=== PATIENT | female | born 1980 | race Caucasian/White ===

== ENCOUNTER 2023-06-07 16:36 | Outpatient (CLI) | payer BC, SELFPAY | END 2023-06-07 16:37 | disposition home or self-care (01) | PROVIDERS: Visit Provider Registered Nurse | DX: Z01.419 Encounter for gynecological examination (general) (routine) without abnormal findings (principal); N92.0 Excessive and frequent menstruation with regular cycle; Z13.6 Encounter for screening for cardiovascular disorders; Z13.1 Encounter for screening for diabetes mellitus | CPT/HCPCS: 80061; 82947; 84443 ==

== ENCOUNTER 2023-06-20 12:52 | Outpatient (CLI) | payer BC, SELFPAY ==
--- NOTE | 2023-06-20 13:00 | CRLHL7_ITS ---
For Patients: As a result of the Century Cures Act, medical imaging exams and procedure reports are released immediately into your electronic medical record. You may view this report before your referring provider. If you have questions, please contact your health care provider. INDICATION: Menorrhagia COMPARISON: none TECHNIQUE: 2D looney scale and color Doppler images were acquired of the pelvis using a transabdominal and transvaginal approach. FINDINGS: Sonographic images demonstrate a normal size and smooth outer contour of the uterus. Uterus measures 8.0 cm in length by 4.0 cm in AP diameter by 5.2 cm in transverse dimension. The myometrium has a normal uniform echotexture. The endometrial lining appears normal and measures 8 mm in composite thickness. The right ovary measures 4.3 x 1.5 x 1.6 cm in size and the left ovary measures 2.5 x 1.4 x 1.8 cm. The ovaries demonstrate normal arterial and venous blood flow on color Doppler analysis. There are no suspicious fluid collections within the cul-de-sac. Trace physiologic free fluid is present. IMPRESSION: Normal pelvic ultrasound. Dictated by Escobar Benoit MD @ 06/20/2023 3:11:41 PM (Electronically Signed)
== END 2023-06-20 12:53 | disposition home or self-care (01) ==
LOC: US 12:53
PROVIDERS: Visit Provider Registered Nurse
DX: N92.0 Excessive and frequent menstruation with regular cycle (principal)
CPT/HCPCS: 76830; 76856

== ENCOUNTER 2023-09-05 14:51 | Outpatient (CLI) | payer BC, SELFPAY ==
--- OUTSIDE RECORDS SUMMARY | 2023-09-05 14:54 | XMS_ITS | Encounter Summary ---
Author Name Unknown Organization [facility] Address [address] [place] [address] Care Team Providers Care Cook Ship Name Role Phone Jeannette Rice MD Primary Care Provider + Jeannette Rice MD Unavailable + Jaylen Gee PA-C Unavailable + Jeannette Rice MD Unavailable + Jeannette Rice MD Unavailable + Encounter Details Date Type Department Care Team (Late st Contact Info) Description 09/11/2019 MyC Medical Advice [address], [address] [place] [address] Fide Lamb Social History Tobacco Use Types Packs/Day Years Used Date Smoking Tobacco: Former Cigarettes 1 10 Q uit: 10/31/2010 Smokeless Tobacco: Never Quit: 10/13/2010 Alcohol Use Standard Drinks/Week Comments Yes 2.5 (1 standard drink = 0.6 oz p ure alcohol) ONCE IN AWHILE. PHQ-2 Answer Date Recorded PHQ-2 Score 0 08/22/2018 Sex and Gender Information Value Date Recorded Sex Assigned at Female 12/24/2020 10:33 AM CDT Gender Identity Female 12/24/2020 10:33 AM CDT Sexual Orientation Straight 12/24/2020 10 :33 AM CDT documented as of this encounter Plan of Treatment Not on file documented as of this encounter Visit Diagnoses Not on filedocumented in this encounter Additional Health Concerns Assessment Noted Time PHQ-9 Depression Total Score: 2 12/08/19 17 7:07 AM CDT documented as of this encounter Care Teams Cook Ship Relationship Specialty Start Date End Date Jeannette Rice MD PCP - General Family Practice 12/06/16 [place] [address] [address]O 385[address] Assigned PCP 12/12/16 09/13/20 Jaylen Gee PA-C [address]5869 [address] [address] Assigned PCP 09/14/20 10/11/20 [place] [address] [address]O 18[address] Assigned PCP 10/12/20 01/17/21 [place] [address] [address] [address] Assigned PCP 01/18/21 documented as of this encounter
--- OUTSIDE RECORDS SUMMARY | 2023-09-05 14:54 | XMS_ITS | Referral Summary ---
Author Name Unknown Organization [place] [facility] Address [address] [place] [address] Care Team Providers Care It Program Engagement Director Name Role Phone Jeannette Rice MD Primary Care Provider Jeannette Rice MD Unavailable [phone] Allergies No known active allergies Medications Medication Sig Dispensed Refills Start Date End Date Status traZODone (DESYREL) 50 MG tabletIndications:Ins omnia, unspecified type Take 1 tablet (50 mg) by mouth At Bedtime 90 tablet 3 12/31/2020 Active Active Problems Problem Noted Date Diagnosed Date Cervical polyp 04/03/2013 CKD (chronic kidney disease) stage 2, GFR 60-89 ml/min 10/10/2012 Right foot pain 04/07/2012 Overview: Stress fx after summer TWYLA I (cervical intraepithelial neoplasia I) Overview: 07/14/10 ASCUS, +high risk HPV 08/04/10 [place], TWYLA 1: repeat in 4 months 12/31/10 Dx pap=neg: Repeat in 6 months 08/27/11 Pap=neg: annual paps per Dr. Rice 10/10/12 Pap= Neg. 1 year screening. 12/06/16 Pap= Normal, +HR HPV, not 16/18. 1 yr co-test 03/13/18 NIL, +HR HPV, not 16/18. Plan colp 04/11/18 [place]- Negative. Plan repeat pap 6 months 01/09/19 NIL, Neg HPV. Plan 3 yr co-test ASCUS on Pap smear 07/14/2010 HPV (human papillomavirus) 07/14/2010 CARDIOVASCULAR SCREENING; LDL GOAL LESS THAN 160 06/14/2010 Genital herpes 04/30/2008 Overview: 2008, one outbreak Anxiety Insomnia Resolved Problems Problem Noted Date Diagnosed Date Resolved Date Lumbar disc herniation with radiculopathy 06/16/2017 12/31/2020 Lumbar radicular pain 05/18/20172016 BMI 26.0-26.9,adult 05/23/2014 02/25/20 15 Indication for care in labor or delivery 12/16/2013 09/11/2019 Post-operative state 12/16/2013 015 Positive test 04/03/201302/12 Genital warts 10/10/2012 Immunizations Name Administration Dates Next Due DT (PEDS <7y) 12/17/1994 DTaP, Unspecified 11/06/2013,05/08/2008 HPV Quadrivalent 06/13/2008,05/08/2008 Historical DTP/aP 11/14/1987, 4,1982,1982,1982 Influenza (IIV3) PF 06/15/2019,06/16/2017,2012 Influenza Vaccine 18-64 (Flublok) 05/08/2015 Influenza Vaccine >6 months,quad, PF 05/13/2018, 05/30/2014 Influenza, seasonal, injectable, PF 05/08/2015 MMR 12/17/1994,10/26/1983 Polio, Unspecified 11/14/1987, 4,1982,1982 TD,PF 7+ (Tenivac) 05/08/2008 Social History Tobacco Use Types Packs/Day Years Used Date Smoking Tobacco: Former Cigarettes 1 10 Q uit: 10/31/2010 Smokeless Tobacco: Never Quit: 10/13/2010 Tobacco Cessation:Counseling Given: Yes Alcohol Use Standard Drinks/Week Comments Yes 2.5 (1 standard drink = 0.6 oz p ure alcohol) ONCE IN AWHILE. PHQ-2 Answer Date Recorded PHQ-2 Score 0 12/31/2020 Adolescent Education Answer Date Record ed Getting School Help Needed Not on file 05/15 Sex and Gender Information Value Date Recorded Sex Assigned at Female 12/24/2020 10:33 AM CDT Gender Identity Female 12/24/2020 10:33 AM CDT Sexual Orientation Straight 12/24/2020 10 :33 AM CDT Last Filed Vital Signs Vital Sign Reading Time Taken Comments Blood Pressure 102/60 12/31/2020 7:15 AM CDT Pulse 60 12/31/2020 7:15 AM CDT Temperature 36.6 ??C (97.8 ??F) 12/31/2020 7:15 AM CD T Respiratory Rate 16 12/31/2020 7:15 AM CDT Oxygen Saturation 100% 09/11/2019 8:43 AM PAINT PREP TECHNICIAN Inhaled Oxygen Concentration - - Weight 66.7 kg (147 lb) 12/31/2020 7:15 AM CDT Height 168.9 cm (5' 6.5) 12/31/2020 7:15 AM CDT Body Mass Index 23.37 12/31/2020 7:15 AM CDT Plan of Treatment Not on file Care Teams It Program Engagement Director Relationship Specialty Start Date End Date Jeannette Rice MD PCP - General Family Practice 12/06/16 [place] [address] [address] [address] Assigned PCP 01/18/21
--- OUTSIDE RECORDS SUMMARY | 2023-09-05 14:54 | XMS_ITS | Encounter Summary ---
Author Name Unknown Organization [facility] Address [address] [place] [address]. [place] [address] Care Team Providers Care Body And Fender Mechanic Apprentice Name Role Phone Jeannette Rice MD Primary Care Provider Jeannette Rice MD Unavailable [phone] Jaylen Gee PA-C Unavailable + [phone] Jeannette Rice MD Unavailable [phone] Jeannette Rice MD Unavailable [phone] Reason for Visit * Reason Onset Date Comments Medication Refill 12/20/2018 traZODone (JONATHAN YREL) 50 MG tablet Encounter Details Date Type Department Care Team (Late st Contact Info) Description 12/20/[address], [address] [place] [address] [place] [address] [place] [address] Medication Refill (traZODone (DESYREL) 50 MG tablet) Social History Tobacco Use Types Packs/Day Years [...] AM CDT documented as of this encounter Miscellaneous Notes * Telephone Encounter - Stella Salgado RN - 12/21/2018 11:23 AM CDT Will give refill as patient has an upcoming appointment. Stella Salgado RN * Telephone Encounter - Carla Samayoa - 12/20/2018 8:26 AM CDT Images from the original note were not included. Requested Prescriptions Pending Prescriptions Disp Refills ??? traZODone (DESYREL) 50 MG tablet [Pharmacy Med Name: TRAZODONE 50 MG TABLET] 90 tablet 1 Sig: TAKE 1 TABLET (50 MG) BY MOUTH NIGHTLY NEEDED FOR SLEEP Last Written Prescription Date: 06/08/18 Last Fill Quantity: 90, # refills: 1 Last Office Visit: 04/11/18 Krystal Return in about 6 months (around 10/12/2018) for repeat pap. Future Office Visit: Next 5 appointments (look out 90 days) January 09, 2019 3:40 PM CDT Office Visit with Jeannette [facility] [address] [place] [address], [address] [address] Serotonin Modulators Passed - 12/20/2018 1:26 AM Passed - Recent (12 mo) or future (30 days) visit within the authorizing provider's specialty Patient had office visit in the last 12 months or has a visit in the next 30 days with authorizing provider or within the authorizing provider's specialty. See Patient Info tab in inbasket, or Choose Columns in Meds & Orders section of the refill encounter. Passed - Medication is active on med list Passed - Patient is age 18 or older Passed - No active on record Passed - No positive test in past 12 months documented in this encounter Plan of Treatment Not on file documented as of this encounter Visit Diagnoses Diagnosis Insomnia, unspecified type documented in this encounter Additional Health Concerns Assessment Noted Time PHQ-9 Depression Total Score: 2 12/08/19 17 7:07 AM CDT documented as of this encounter Care Teams Body And Fender Mechanic Apprentice Relationship Specialty Start Date End Date Jeannette Rcie MD PCP - General Family Practice 12/06/16 [place] [address] [address] [address] Assigned PCP 12/12/16 09/13/20 Jaylen Gee PA-C [address]22 [address] [address] Assigned PCP 09/14/20 10/11/20 [place] [address] [address] [address] Assigned PCP 10/12/20 01/17/21 [place] [address] [place] [address] Assigned PCP 01/18/21 documented as of this encounter
--- OUTSIDE RECORDS SUMMARY | 2023-09-05 14:54 | XMS_ITS | Continuity of Care Document ---
Author Name Unknown Organization [facility] Address [address] [place] [address] [place] [address] Insurance Providers Payer Plan Claims Address Claims Phone Policy Number Group Number Relation Employer Guarantor Name Guarantor Guarantor Address Guarantor Phone BCBS BCBS [address] [address], [place] [address] tel:[phone] [id number] Self Deidra Roberts 1980 [facility] [place] [address] Blue Cross [id number] Blue Cross [id number] Self Deidra Roberts 1980 [facility] [address] [place], [place] [address] Problems Condition ICD9 code ICD10 code SNOMED code Start Date End Date S tatus Encounter for immunization Z23 Final Excessive and frequent menstruation with regular cycle N92.0 Final Encounter for other screening for malignant neoplasm of breast Z12.39 Final Excessive and frequent menstruation with regular cycle N92.0 Admitting Excessive and frequent menstruation with regular cycle N92.0 Final Encounter for other screening for malignant neoplasm of breast Z12.39 Admitting Results No Results Allergies, adverse reactions, alerts No known allergies and adverse reactions Medications No administered medications reported Vital Signs No vital signs reported Social History No smoking Hx information available
--- OUTSIDE RECORDS SUMMARY | 2023-09-05 14:54 | XMS_ITS | Encounter Summary ---
Author Name Unknown Organization [facility] Address [address] [place] [address] Care Team Providers Care Incubator Machine Operator Name Role Phone Jeannette Rice MD Primary Care Provider + Jeannette Rice MD Unavailable + Jeannette Rice MD Unavailable + Jaylen Gee PA-C Unavailable + Jeannette Rice MD Unavailable + Jeannette Rice MD Unavailable + Encounter Details Date Type Department Care Team (Late st Contact Info) Description 09/29/2018 MyC Medical Advice [address] [address] Lourdes Goode Social History Tobacco Use Types Packs/Day Years [...] documented as of this encounter Care Teams Incubator Machine Operator Relationship Specialty Start Date End Date Jeannette Rice MD PCP - General Family Practice 12/06/16 [place] [address] [place] [address] PCP - Assigned PCP 12/12/16 10/17/18 [place] [address] [place] [address] Assigned PCP 12/12/16 09/13/20 Jaylen Gee PA-C [address] [place] [address] Assigned PCP 09/14/20 10/11/20 [place] [address] [place] [address] Assigned PCP 10/12/20 01/17/21 [place] [address] [place] [address] Assigned PCP 01/18/21 documented as of this encounter
--- OUTSIDE RECORDS SUMMARY | 2023-09-05 14:54 | XMS_ITS | Clinical Summary ---
Author Name Unknown Organization [facility] Address [address] [place] [address] Care Team Providers Care Press Set Up Name Role Phone Jeannette Rice MD Primary Care Provider Jeannette Rice MD Unavailable [phone] Allergies No known active allergies Medications Medication [...] Overview: 07/14/10 ASCUS, +high risk HPV 08/04/10 [place], TWYLA 1: repeat in 4 months 12/31/10 Dx pap=neg: Repeat in 6 months 08/27/11 Pap=neg: annual paps per Dr. Rice 10/10/12 Pap= Neg. 1 year screening. 12/06/16 Pap= Normal, +HR HPV, not 16/18. 1 yr co-test 03/13/18 NIL, +HR HPV, not 16/18. Plan colp 04/11/18 [place]- Negative. Plan repeat pap 6 months 01/09/19 [...] Unspecified 11/14/1987, 4,1982,1982 TD,PF 7+ (Tenivac) 05/08/2008 Family History Medical History Relation Comments Family History Negative Brother Family History Negative Father Cancer Maternal Grandfather skin CA Diabetes Maternal Grandmother DM2 Family History Negative Mother other th an osteopenia Cancer Paternal Grandfather Lung CA Family History Negative Sister Relation Status Comments Brother Alive Father Alive Maternal Grandfather Maternal Grandmother Alive Mother Alive Paternal Grandfather Paternal Grandmother Sister Alive Son Alive Social History Tobacco Use Types Packs/Day Years [...] CDT Oxygen Saturation 100% 09/11/2019 8:43 AM BEAMSTER Inhaled Oxygen Concentration - - Weight 66.7 kg (147 lb) 12/31/2020 7:15 AM CDT Height 168.9 cm (5' 6.5) 12/31/2020 7:15 AM CDT Body Mass Index 23.37 12/31/2020 7:15 AM CDT Plan of Treatment Health Maintenance Due Date Last Done Comments HEPATITIS B IMMUNIZATION (1 of 3 - 3-dose series) 1982 COVID-19 Vaccine (#1) 01/19/1983 HPV IMMUNIZATION (3 - 3-dose series) 11/05/2008 06/13/2008, 05/08/2008 ANNUAL REVIEW OF HM ORDERS 12/31/2021 12/31/2020 BMP 12/31/2021 12/31/2020, 08/16, 03/13/2018, Additional history exists LIPID 12/31/2021 12/31/2020, 08/16, 03/13/2018, Additional history exists MICROALBUMIN 12/31/2021 12/31/2020, 08/16, 10/10/2012 YEARLY PREVENTIVE VISIT 12/31/2021 01/01/20 21, 03/13/2018, 10/10/2012, Additional history exists HPV TEST 01/09/2022 01/09/2019, 12/14, 03/13/2018, Additional history exists PAP 01/09/2022 01/09/2019, 02/14, 12/06/2016, Additional history exists INFLUENZA VACCINE (#1) 2023 9, 05/13/2018, 06/16/2017, Additional history exists PHQ-2 (once per calendar year) 2023 12/31/2020, 10/09/2019, 01/09/2019, Additional history exists DTAP/TDAP/TD IMMUNIZATION (9 - Tdap) 11/07/2023 11/06/2013, 05/08/2008, 05/08/2008, Additional history exists ADVANCE CARE PLANNING 01/14/2026 01/14/2021 IPV IMMUNIZATION Completed 11/14/1987, 08/1983, 1982, Additional history exists HIV SCREENING Completed 05/25/2013 URINALYSIS Completed 12/17/2015, 03/16, 03/06/2013, Additional history exists HEPATITIS C SCREENING Completed 12/31/2020 MENINGITIS IMMUNIZATION Aged Out No l onger eligible based on patient's age to complete this topic Pneumococcal Vaccine: Pediatrics (0 to 5 Years) and At-Risk Patients (6 to 64 Years) Aged Out No longer eligible based on patient's age to complete this topic RSV MONOCLONAL ANTIBODY Aged Out No l onger eligible based on patient's age to complete this topic Care Teams Press Set Up Relationship Specialty Start Date End Date Jeannette Rice MD PCP - General Family Practice 12/06/16 [place] [address] [address] [address] Assigned PCP 01/18/21
--- OUTSIDE RECORDS SUMMARY | 2023-09-05 14:55 | XMS_ITS | Encounter Summary ---
Author Name Unknown Organization [facility] Address [address] [place] [address] Care Team Providers Care Administrative Clerk Name Role Phone Jeannette Rice MD Primary Care Provider + Jeannette Rice MD Unavailable + Jeannette Rice MD Unavailable + Jaylen Gee PA-C Unavailable + Jeannette iRce MD Unavailable + Jeannette Rice MD Unavailable + Encounter Details Date Type Department Care Team (Late st Contact Info) Description 10/09/2012 [facility] [address], [facility] [address] [place] [phone] [facility] Social History Tobacco Use Types Packs/Day Years Used Date Smoking Tobacco: Former Cigarettes Q uit: 10/31/2010 Smokeless Tobacco: Never Quit: 10/13/2010 Alcohol Use Standard Drinks/Week Comments Yes 0 (1 standard drink = 0.6 oz pur e alcohol) Sex and Gender Information Value Date Recorded Sex Assigned at Female 12/24/2020 10:33 AM CDT Gender Identity Female 12/24/2020 10:33 AM CDT Sexual Orientation Straight 12/24/2020 10 :33 AM CDT documented as of this encounter Plan of Treatment Not on file documented as of this encounter Visit Diagnoses Not on filedocumented in this encounter Care Teams Administrative Clerk Relationship Specialty Start Date End Date Jeannette Rice MD PCP - General Family Practice 12/06/16 [place] [address] [place] [address] PCP - Assigned PCP 12/12/16 10/17/18 [place] [address] [place] [address] Assigned PCP 12/12/16 09/13/20 Jaylen Gee PA-C [address] [place] [address] Assigned PCP 09/14/20 10/11/20 [place] [address] [place] [address] Assigned PCP 10/12/20 01/17/21 [place] [address] [place] [address] Assigned PCP 01/18/21 documented as of this encounter
--- OUTSIDE RECORDS SUMMARY | 2023-09-05 14:55 | XMS_ITS | Encounter Summary ---
Author Name Unknown Organization [facility] Address [address] [place] [address] Care Team Providers Care Mobile Electronics Installer Name Role Phone Jeannette Rice MD Primary Care Provider + Jeannette Rice MD Unavailable + Jeannette Rice MD Unavailable + Jaylen Gee PA-C Unavailable + Jeannette Rice MD Unavailable + Jeannette Rice MD Unavailable + Encounter Details Date Type Department Care Team (Late st Contact Info) Description 06/24/2017 MyC Medical Advice [facility] [address] [address] Charley Marie, RN Social History Tobacco Use Types Packs/Day Years Used Date Smoking Tobacco: Former Cigarettes 1 10 Q uit: 10/31/2010 Smokeless Tobacco: Never Quit: 10/13/2010 Alcohol Use Standard Drinks/Week Comments Yes 2.5 (1 standard drink = 0.6 oz p ure alcohol) ONCE IN AWHILE. Sex and Gender Information Value Date Recorded [...] documented as of this encounter Care Teams Mobile Electronics Installer Relationship Specialty Start Date End Date Jeannette Rice MD PCP - General Family Practice 12/06/16 [place] [address] [address]O [address] PCP - Assigned PCP 12/12/16 10/17/18 [place] [address] [address] [address] Assigned PCP 12/12/16 09/13/20 Jaylen Gee PA-C [address] [address] [address] Assigned PCP 09/14/20 10/11/20 [place] [address] [address] [address] Assigned PCP 10/12/20 01/17/21 [place] [address] [address] [address] Assigned PCP 01/18/21 documented as of this encounter
--- OUTSIDE RECORDS SUMMARY | 2023-09-05 14:55 | XMS_ITS | Encounter Summary ---
Author Name Unknown Organization [facility] Address [address] [place] [address] Care Team Providers Care Management And Budget Analyst Name Role Phone Jeannette Rice MD Primary Care Provider + Jeannette Rice MD Unavailable + Jeannette Rice MD Unavailable + Jaylen Gee PA-C Unavailable + Jeannette Rice MD Unavailable + Jeannette Rice MD Unavailable + Encounter Details Date Type Department Care Team (Late st Contact Info) Description 03/30/[address] [phone] Tarsha [place] [address] ER ENC REPT (Primary Dx) Social History Tobacco Use Types Packs/Day Years [...] AM CDT documented as of this encounter Progress Notes * 03/30/2003 11:59 PM [id number] 00:00 Emergency Department Encounter-LUIS CRAWFORD) [Entered: 00:00 Non Destructive Evaluation Technician ([facility])] CHIEF COMPLAINT: Abdominal pain. HISTORY OF PRESENT ILLNESS: Deidra Roberts is a 22-year- old female, 0, para 0, LMP 03/07/03, presents to the Emerge ncy Department complaining of sudden onset of left flank pain at 14:00. The patient states that the pain was of a restless quality but was not associated with any urinary symptoms. The patient denie s any fever or chills, history of kidney stones. The patient states that she has had periodic back left flank pain for months to years. She was seen initially at [facility] at [facility] and wa s sent to the Emergency Department for further evaluation. There has been no nausea or vomiting. PAST MEDICAL HISTORY: Bladder surgery 18 years ago. 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 MEDICATIONS: None. ALLERGIES: None. SOCIAL HISTORY: Student at [employer]. Keysha ing in [place]. REVIEW OF SYSTEMS: MANAGER PAID: Negative. : Negative. GI: The patient denies any vom iting or diarrhea, history of irritable bowel. PHYSICAL EXAMINATION: VITAL SIGNS: Temperature 98.1 , pulse of 73, respiratory rate 16, blood pressure 133/85. GENERAL: Well-developed, well-nourished f emale, awake, alert. SKIN: Warm and dry. HEAD: Normocephalic and atraumatic. EYES: Pupils are eq ual, round, reactive to light. Extraocular motions are intact. EAR: TM's clear. NOSE and THROAT: Clear. NECK: Supple. CHEST: Clear to auscultation, without CVA tenderness. CV: S1, S2, no S3, S4. ABDOMEN: Tender to palpation in left lower quadrant. There are no masses. There is no rebound. There is no involuntary guarding. PELVIC: Refused. EXTREMITIES: Without cyanosis, clubbing or edema. NEURO: Moves all extremities well. DTR's +2. EMERGENCY DEPARTMENT COURSE: WBC 8.5, he moglobin 13.5, hematocrit 40. Urinalysis positive for protein, otherwise negative for WBC, negative for RBC. Serum HCG negative. CT of the abdomen and pelvis kidney stone protocol demonstrated no e vidence of hydronephrosis, renal calculus. Pelvic ultrasound was obtained and was negative. The patient received Toradol 30 mg IV push. I surmised her abdominal pain was either secondary to mitt elschmerz, ruptured ovarian cyst, or passed kidney stone, or kidney stone too small to detect. IMPRE SSION: Abdominal pain, etiology unknown. PLAN: 1. Vicodin dispense 12. 2. Strain all urine, save all stones. 3. Push fluids. 4. [facility] [place] MD [place]: [facility] Document: [id number] [place], [place] Name: BEENA DEIDRA Rueda EMERGENCY ROOM ENCOUNTER Page 2 of 2 LCN: ER DSC: 03/30 [place], [place] Name: BEENADEIDRA Mohit MR#: : Admit Date: 09-27-29-57 1980 03/30/2003 Doctor: LUIS VALVERDE MD EMERGENCY ROOM ENCOUNTER Page 1 of 2 Electronically filed by Andreas Iglesias 04/03/2003 5:05 PM documented in this encounter Plan of Treatment Not on file documented as of this encounter Visit Diagnoses Diagnosis ER ENC REPT- Primary documented in this encounter Care Teams Management And Budget Analyst Relationship Specialty Start Date End Date Jeannette Rice MD PCP - General Family Practice 12/06/16 [place] [address] [address] [address] PCP - Assigned PCP 12/12/16 10/17/18 [place] [address] [address] [address] Assigned PCP 12/12/16 09/13/20 Jaylen Gee PA-C [address] [place], [place] [address] Assigned PCP 09/14/20 10/11/20 [place] [address] [address] [address] Assigned PCP 10/12/20 01/17/21 [place] [address] [address] [address] Assigned PCP 01/18/21 documented as of this encounter
--- OUTSIDE RECORDS SUMMARY | 2023-09-05 14:55 | XMS_ITS | Encounter Summary ---
Author Name Unknown Organization [facility] Address [address] [place] [address] Care Team Providers Care Coconut Boiler Name Role Phone Jeannette Rice MD Primary Care Provider + Jeannette Rice MD Unavailable + Jeannette Rice MD Unavailable + Jaylen Gee PA-C Unavailable + Jeannette Rice MD Unavailable + Jeannette Rice MD Unavailable + Encounter Details Date Type Department Care Team (Late st Contact Info) Description 05/25/2017 MyC Medical Advice [facility] [address] [address] Kenyetta Prieto APRN SORTING GRAPPLE OPERATOR [facility] [address] [place] [address] Social History Tobacco Use Types Packs/Day Years [...] documented as of this encounter Care Teams Coconut Boiler Relationship Specialty Start Date End Date Jeannette Rice MD PCP - General Family Practice 12/06/16 [place] [address] CLAUDIA CORADO 10774 PCP - Assigned PCP 12/12/16 10/17/18 [place] [address] [place] CORADO 27327 Assigned PCP 12/12/16 09/13/20 Jaylen Gee PA-C 41288 [place] 85666 Assigned PCP 09/14/20 10/11/20 [place] [address] CLAUD[place] CORADO 56208 Assigned PCP 10/12/20 01/17/21 [place] [address] CLAUD[place] CORADO 59961 Assigned PCP 01/18/21 documented as of this encounter
--- OUTSIDE RECORDS SUMMARY | 2023-09-05 14:55 | XMS_ITS | Encounter Summary ---
Author Name Unknown Organization [facility] Address [address] [place] [address]. [place] [address] Care Team Providers Care Homemaking Rehabilitation Consultant Name Role Phone Jeannette Rice MD Primary Care Provider Jeannette Rice MD Unavailable [phone] Jeannette Rice MD Unavailable [phone] Jaylen Gee PA-C Unavailable + [phone] Jeannette Rice MD Unavailable [phone] Jeannette Rice MD Unavailable [phone] Reason for Visit * Reason Onset Date Comments Abnormal Uterine Bleeding 10/25/2017 Menses Encounter Details Date Type Department Care Team (Late st Contact Info) Description 10/25/2017 MyC Medical Advice [address], [address] [place] [address] [place] [address] [address] [place], [place] [id number] Abnormal Uterine Bleeding (Menses) Social History Tobacco Use Types Packs/Day Years [...] encounter Miscellaneous Notes * Telephone Encounter - Cary Duncan RN - 10/26/2017 10:05 AM CDT Responded to the Pt. See below. Cary Duncan RN -- [facility] Workforce * Telephone Encounter - Jeannette Rice MD - 10/26/2017 9:48 AM CDT This is a new medication request. A phone visit or evisit would work best documented in this encounter Plan of Treatment Not on file documented as of this encounter Visit Diagnoses Not on filedocumented in this encounter Additional Health Concerns Assessment Noted Time PHQ-9 Depression Total Score: 2 12/08/19 17 7:07 AM CDT documented as of this encounter Care Teams Homemaking Rehabilitation Consultant Relationship Specialty Start Date End Date Jeannette Rice MD PCP - General Family Practice 12/06/16 [place] [address] CLA[address] CORADO 37776 PCP - Assigned PCP 12/12/16 10/17/18 [place] [address] CLAUD[place] CORADO 11175 Assigned PCP 12/12/16 09/13/20 Jaylen Gee PA-C 72874 [place] 74424 Assigned PCP 09/14/20 10/11/20 [place] [address] CLAUD[address] CORADO 58514 Assigned PCP 10/12/20 01/17/21 [place] [address] CLAUD[address] CORADO 52991 Assigned PCP 01/18/21 documented as of this encounter
--- OUTSIDE RECORDS SUMMARY | 2023-09-05 14:55 | XMS_ITS | Encounter Summary ---
Author Name Unknown Organization [facility] Address [address] [place] [address] Care Team Providers Care Coal Pipeline Operator Name Role Phone Jeannette Riec MD Primary Care Provider + Jeannette Rice MD Unavailable + Jeannette Rice MD Unavailable + Jaylen Gee PA-C Unavailable + Jeannette Rice MD Unavailable + Jeannette Rice MD Unavailable + Encounter Details Date Type Department Care Team (Late st Contact Info) Description 02/08/[address] [phone] [place]arsha [place] [address] PROG NOTE Social History Tobacco Use Types Packs/Day Years [...] as of this encounter Visit Diagnoses Diagnosis CINTIA DAVID PROG NOTE- Primary documented in this encounter Care Teams Coal Pipeline Operator Relationship Specialty Start Date End Date Jeannette Rice MD PCP - General Family Practice 12/06/16 [place] [address] [address] CORADO 54545 PCP - Assigned PCP 12/12/16 10/17/18 [place] [address] CLA[address] CORADO 01289 Assigned PCP 12/12/16 09/13/20 Jaylen Gee PA-C 67728 [place] 01456 Assigned PCP 09/14/20 10/11/20 [place] [address] CLAUD[address] CORADO 95606 Assigned PCP 10/12/20 01/17/21 [place] [address] CLAUD[address] CORADO 55705 Assigned PCP 01/18/21 documented as of this encounter
--- NOTE | 2023-09-05 15:00 | CRLHL7_ITS ---
For Patients: As a result of the Century Cures Act, medical imaging exams and procedure reports are released immediately into your electronic medical record. You may view this report before your referring provider. If you have questions, please contact your health care provider. BILATERAL SCREENING MAMMOGRAM WITH COMPUTER-AIDED DETECTION AND TOMOSYNTHESIS TECHNIQUE: CC and MLO views were obtained. These mammographic images have been obtained using full-field digital technique. These mammographic images were interpreted with the benefit of computer-aided detection. Breast Tomosynthesis was used in this interpretation. COMPARISON FILM: Baseline. FINDINGS: The breasts are heterogeneously dense, which may obscure small masses IMPRESSION: There is no radiographic evidence for malignancy. ASSESSMENT: BI-RADS Category 1: Negative RECOMMENDATION: Routine screening mammogram in 1 year. A lay language report of this examination will be provided to the patient. Escobar Benoit M.D. Diagnostic Radiologist [email or web address] MAUREEN/jaswinder / be/Dictated by: Escobar Benoit MD @ 09/06/2023 8:44:00 AM (Electronically Signed)
== END 2023-09-05 14:52 | disposition home or self-care (01) ==
LOC: MAMMO 14:51
PROVIDERS: Visit Provider Registered Nurse
DX: Z12.31 Encounter for screening mammogram for malignant neoplasm of breast (principal); R92.2 Inconclusive mammogram
CPT/HCPCS: 77063; 77067

== ENCOUNTER 2024-06-08 08:59 | Outpatient (CLI) | payer BC, SELFPAY ==
--- OUTSIDE RECORDS SUMMARY | 2024-06-08 09:02 | XMS_ITS | Encounter Summary ---
Author Organization [facility] Address [address] [place] [address] Care Team Providers Care Concrete Mixer Operator Helper Name Role Phone Jeannette Rice MD Primary Care Provider + Jeannette Rice MD Unavailable + Jeannette Rice MD Unavailable + Jaylen Gee PA-C Unavailable + Jeannette Rice MD Unavailable + Jeannette Rice MD Unavailable + Encounter Details Date Type Department Care Team (Late st Contact Info) Description 09/29/2018 MyC Medical Advice [address] [phone] Lourdes Goode Social History Tobacco Use Types Packs/Day Years Used Date Smoking Tobacco: Former Cigarettes 1 10 0 10/31/2000 - 10/31/2010 Smokeless Tobacco: Never Quit: 10/13/2010 Alcohol Use Standard Drinks/Week Comments Yes 2.5 (1 standard drink = 0.6 oz p ure alcohol) ONCE IN AWHILE. PHQ-2 Answer Date Recorded PHQ-2 Score 0 08/22/2018 Comments No Sex and Gender Information Value Date Recorded Sex Assigned at Female 12/24/2020 10:33 AM CDT Legal Sex Female 3:28 AM WEARING APPAREL PRESSER Gender Identity Female 12/24/2020 10:33 AM CDT Sexual Orientation Straight 12/24/2020 10 :33 AM CDT documented as of this encounter Plan of Treatment Not on file documented as of this encounter Visit Diagnoses Not on filedocumented in this encounter Additional Health Concerns Assessment Noted Time PHQ-9 Depression Total Score: 2 12/08/19 17 7:07 AM CDT documented as of this encounter Care Teams Concrete Mixer Operator Helper Relationship Specialty Start Date End Date Jeannette Rice MD PCP - General Family Practice 12/06/16 [place] [address] [place] [address] PCP - Assigned PCP 12/12/16 10/17/18 [place] [address] [place] [address] Assigned PCP 12/12/16 09/13/20 Jaylen Gee PA-C [address] [place] [address] Assigned PCP 09/14/20 10/11/20 [place] [address] [place] [address] Assigned PCP 10/12/20 01/17/21 [place] [address] [place] [address] Assigned PCP 01/18/21 02/04/24 documented as of this encounter
--- OUTSIDE RECORDS SUMMARY | 2024-06-08 09:02 | XMS_ITS | Encounter Summary ---
Author Organization [facility] Address [address] [place] [address] Care Team Providers Care Repairer Veneer Sheet Name Role Phone Jeannette Rice MD Primary Care Provider + Jeannette Rice MD Unavailable + Jeannette Rice MD Unavailable [phone] Jaylen Gee PA-C Unavailable [phone] Jeannette Rice MD Unavailable [phone] Jeannette Rice MD Unavailable [phone] Encounter Details Date Type Department Care Team (Late st Contact Info) Description 02/08/[address] [phone] Tarsha Vinson MD NO INFO FOUND [place], [place] [address] PROG NOTE Social History Tobacco Use Types Packs/Day Years Used Date Smoking Tobacco: Former Cigarettes 1 10 0 10/31/2000 - 10/31/2010 Smokeless Tobacco: Never Quit: 10/13/2010 Alcohol Use Standard Drinks/Week Comments Yes 2.5 (1 standard drink = 0.6 oz p ure alcohol) ONCE IN AWHILE. Comments No Sex and Gender Information Value Date Recorded Sex Assigned at Female 12/24/2020 10:33 AM CDT Legal Sex Female 3:28 AM ASSISTED LIVING EXECUTIVE DIRECTOR Gender Identity Female 12/24/2020 10:33 AM CDT Sexual Orientation Straight 12/24/2020 10 :33 AM CDT documented as of this encounter Plan of Treatment Not on file documented as of this encounter Visit Diagnoses Diagnosis CINTIA DAVID PROG NOTE- Primary documented in this encounter Care Teams Repairer Veneer Sheet Relationship Specialty Start Date End Date Jeannette Rice MD PCP - General Family Practice 12/06/16 [place] [address] [place] [address] PCP - Assigned PCP 12/12/16 10/17/18 [place] [address] [place] [address] Assigned PCP 12/12/16 09/13/20 Jaylen Gee PA-C [address] [place] [address] Assigned PCP 09/14/20 10/11/20 [place] [address] [place] [address] Assigned PCP 10/12/20 01/17/21 [place] [address] [place] [address] Assigned PCP 01/18/21 02/04/24 documented as of this encounter
--- OUTSIDE RECORDS SUMMARY | 2024-06-08 09:02 | XMS_ITS | Continuity of Care Document ---
Author Organization [facility] Address [address] [place] [address] [place] [address] Insurance Providers Payer Plan Claims Address Claims Phone Policy Number Group Number Relation Employer Guarantor Name Guarantor Guarantor Address Guarantor Phone BS BS [address] [address], [place] [address] tel:[phone] Self Deidra Roberts [address] [place] [address] [place] [address] Blue Cross [id number] Blue Cross [id number] Self Deidra Roberts [address] [place] [address] [place] [address] Problems Condition ICD9 code ICD10 code SNOMED code Start Date End Date S tatus Encounter for screening, unspecified Z13.9 Results No Results Allergies, adverse reactions, alerts No known allergies and adverse reactions Medications No administered medications reported Vital Signs No vital signs reported Social History No smoking Hx information available
--- OUTSIDE RECORDS SUMMARY | 2024-06-08 09:02 | XMS_ITS | Encounter Summary ---
Author Organization [facility] Address [address] [place] [address] Care Team Providers Care Education Consultant Name Role Phone Jeannette Rice MD Primary Care Provider + Jeannette Rice MD Unavailable + Jeannette Rice MD Unavailable [phone] Jaylen Gee PA-C Unavailable + Jeannette Rice MD Unavailable + Jeannette Rice MD Unavailable [phone] Encounter Details Date Type Department Care Team (Late st Contact Info) Description 05/25/2017 MyC Medical Advice [facility] [address] [address] Kenyetta Prieto APRN PUBLIC HEALTH AIDE [facility] [address] [facility] [address] [place] [address] Social History Tobacco Use Types [...] AM CDT Legal Sex Female 3:28 AM AUCTION CLERK Gender Identity Female 12/24/2020 10:33 AM CDT Sexual Orientation Straight 12/24/2020 10 :33 AM CDT documented as of this encounter Plan of Treatment Not on file documented as of this encounter Visit Diagnoses Not on filedocumented in this encounter Additional Health Concerns Assessment Noted Time PHQ-9 Depression Total Score: 2 12/08/19 17 7:07 AM CDT documented as of this encounter Care Teams Education Consultant Relationship Specialty Start Date End Date Jeannette Rice MD PCP - General Family Practice 12/06/16 [place] [address] CLAUDIA CORADO [id number] PCP - Assigned PCP 12/12/16 10/17/18 [place] [address] [address]ADO 40491 Assigned PCP 12/12/16 09/13/20 Jaylen Gee PA-C 31921 [place] 81597 Assigned PCP 09/14/20 10/11/20 [place] [address] [address] [address] 93991 Assigned PCP 10/12/20 01/17/21 [place] [address] CLA[address] CORADO [id number] Assigned PCP 01/18/21 02/04/24 documented as of this encounter
--- OUTSIDE RECORDS SUMMARY | 2024-06-08 09:02 | XMS_ITS | Clinical Summary ---
Author Organization [facility] Address [address] [place] [address] Care Team Providers Care Fixture Relamper Name Role Phone Jeannette Rice MD Primary Care Provider Allergies No known active allergies Medications traZODone (DESYREL) 50 MG tabletIndication s:Insomnia, unspecified type Take 1 tablet (50 mg) by mouth At Bedtime 90 tablet 3 12/31/2020 Active Active Problems Problem Noted Date Diagnosed Date Cervical polyp 04/03/2013 CKD (chronic kidney disease) stage 2, GFR 60-89 ml/min 10/10/2012 Right foot pain 04/07/2012 Overview (12/31/2020): Stress fx after summer TWYLA I (cervical intraepithelial neoplasia I) Overview (01/17/2019): 07/14/10 ASCUS, +high risk HPV 08/04/10 [place], TWYLA 1: repeat in 4 months 12/31/10 Dx pap=neg: Repeat in 6 months 08/27/11 Pap=neg: annual paps per Dr. Rice 10/10/12 Pap= Neg. 1 year screening. 12/06/16 Pap= Normal, +HR HPV, not 16/18. 1 yr co-test 03/13/18 NIL, +HR HPV, not 16/18. Plan colp 04/11/18 [place]- Negative. Plan repeat pap 6 months 01/09/19 NIL, Neg HPV. Plan 3 yr co-test ASCUS on Pap smear 07/14/2010 HPV (human papillomavirus) 07/14/2010 CARDIOVASCULAR SCREENING; LDL GOAL LESS THAN 160 06/14/2010 Genital herpes 04/30/2008 Overview (12/31/2020): 2008, one outbreak Anxiety Insomnia Resolved Problems [...] - 10/31/2010 Smokeless Tobacco: Never Quit: 10/13/2010 Tobacco Cessation:Counseling Given: Yes Alcohol Use Standard Drinks/Week Comments Yes 2.5 (1 standard drink = 0.6 oz p ure alcohol) ONCE IN AWHILE. PHQ-2 Answer Date Recorded PHQ-2 Score 0 12/31/2020 Adolescent Education Answer Date Record ed Getting School Help Needed Not on file 05/15 Comments No Sex and Gender Information Value Date Recorded Sex Assigned at Female 12/24/2020 10:33 AM CDT Legal Sex Female 3:28 AM SET PAINTER Gender Identity Female 12/24/2020 10:33 AM CDT Sexual Orientation Straight 12/24/2020 10 :33 AM CDT Last Filed Vital Signs Vital Sign Reading Time Taken Comments Blood Pressure 102/60 12/31/2020 7:15 AM CDT Pulse 60 12/31/2020 7:15 AM CDT Temperature 36.6 ??C (97.8 ??F) 12/31/2020 7:15 AM CD T Respiratory Rate 16 12/31/2020 7:15 AM CDT Oxygen Saturation 100% 09/11/2019 8:43 AM SET PAINTER Inhaled Oxygen Concentration - - Weight 66.7 kg (147 lb) 12/31/2020 7:15 AM CDT Height 168.9 cm (5' 6.5) 12/31/2020 7:15 AM CDT Body Mass Index 23.37 12/31/2020 7:15 AM CDT Plan of Treatment Not on file [id number] Care Teams Fixture Relamper Relationship Specialty Start Date End Date Jeannette Rice MD PCP - General Family Practice 12/06/16
--- OUTSIDE RECORDS SUMMARY | 2024-06-08 09:02 | XMS_ITS | Encounter Summary ---
Author Organization [facility] Address [address] [place] [address] Care Team Providers Care Change Control Manager Name Role Phone Jeannette Rice MD Primary Care Provider Jeannette Rice MD Unavailable [phone] Jeannette Rice MD Unavailable +[phone] Jaylen Gee PA-C Unavailable +[phone] Jeannette Rice MD Unavailable +[phone] Jeannette Rice MD Unavailable [phone] Encounter Details Date Type Department Care Team (Late st Contact Info) Description 03/30/[address] [address] Tarsha Vinson MD NO INFO FOUND [place], [place] [address] ER ENC REPT (Primary Dx) Social History [...] AM CDT Legal Sex Female 3:28 AM SHODER FILLER Gender Identity Female 12/24/2020 10:33 AM CDT Sexual Orientation Straight 12/24/2020 10 :33 AM CDT documented as of this encounter Progress Notes * 03/30/2003 11:59 PM [id number] 00:00 Emergency Department Encounter-LUIS CRAWFORD) [Entered: 00:00 Business Planning Analyst (HIM)] CHIEF COMPLAINT: Abdominal pain. HISTORY OF PRESENT ILLNESS: Deidra Hargrove is a 22-year- old female, 0, para [...] to years. She was seen initially at [facility] and wa s sent to the Emergency Department for further evaluation. There has been no nausea or vomiting. PAST MEDICAL HISTORY: Bladder surgery 18 years ago. 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 MEDICATIONS: None. ALLERGIES: None. SOCIAL HISTORY: Student at [employer]. Keysha ing in [place]. REVIEW OF SYSTEMS: WORKFORCE PLANNING ANALYST: Negative. : Negative. GI: The patient denies [...] Push fluids. 4. Follow-up with PMD at [facility] [place] VALVERDE MD [place]: [facility] Document: [id number] [place], [place] Name: DEIDRA HARGROVE EMERGENCY ROOM ENCOUNTER Page 2 of 2 LCN: ER DSC: 03/30 [place], [place] Name: BEENA DEIDRA Mohit MR#: : Admit Date: 00 --30-57 1980 03/30/2003 Doctor: LUIS VALVERDE MD EMERGENCY ROOM ENCOUNTER Page 1 of 2 Electronically filed by Andreas Iglesias 04/03/2003 5:05 PM documented in this encounter Plan of Treatment Not on file documented as of this encounter Visit Diagnoses Diagnosis ER ENC REPT- Primary documented in this encounter Care Teams Change Control Manager Relationship Specialty Start Date End Date Jeannette Rice MD PCP - General Family Practice 12/06/16 [place] [address] [place] COR[place]O [address] PCP - Assigned PCP 12/12/16 10/17/18 [place] [address] [place] CORAD[place] 49464 Assigned PCP 12/12/16 09/13/20 Jaylen Gee PA-C 59365 [place] 19105 Assigned PCP 09/14/20 10/11/20 [place] [address] [address] CORADO 188[address] Assigned PCP 10/12/20 01/17/21 [place] [address] [address] CORADO 60659 Assigned PCP 01/18/21 02/04/24 documented as of this encounter
--- OUTSIDE RECORDS SUMMARY | 2024-06-08 09:02 | XMS_ITS | Encounter Summary ---
Author Organization [facility] Address [address] [place] [address] Care Team Providers Care Child Care Worker Name Role Phone Jeannette Rice MD Primary Care Provider + Jeannette Rice MD Unavailable + Jeannette Rice MD Unavailable + Jaylen Gee PA-C Unavailable + Jeannette Rice MD Unavailable + Jeannette Rice MD Unavailable + Encounter Details Date Type Department Care Team (Late st Contact Info) Description 10/09/2012 [facility] [address], [address] [place] [address] [facility] Social History Tobacco Use Types Packs/Day Years Used Date Smoking Tobacco: Former Cigarettes Q uit: 10/31/2010 Smokeless Tobacco: Never Quit: 10/13/2010 Alcohol Use Standard Drinks/Week Comments Yes 0 (1 standard drink = 0.6 oz pur e alcohol) Comments No Sex and Gender Information Value Date Recorded Sex Assigned at Female 12/24/2020 10:33 AM CDT Legal Sex Female 3:[address] TECHNICIAN Gender Identity Female 12/24/2020 10:33 AM CDT Sexual Orientation Straight 12/24/2020 10 :33 AM CDT documented as of this encounter Plan of Treatment Not on file documented as of this encounter Visit Diagnoses Not on filedocumented in this encounter Care Teams Child Care Worker Relationship Specialty Start Date End Date Krystal, Jeannette She, MD PCP - General Family Practice 12/06/16 [place] [address] [place] [address] PCP - Assigned PCP 12/12/16 10/17/18 [place] [address] [place] [address] Assigned PCP 12/12/16 09/13/20 Jaylen Gee PA-C [address] [place] [address] Assigned PCP 09/14/20 10/11/20 [place] [address] [place] [address] Assigned PCP 10/12/20 01/17/21 [place] [address] [place] [address] Assigned PCP 01/18/21 02/04/24 documented as of this encounter
--- OUTSIDE RECORDS SUMMARY | 2024-06-08 09:02 | XMS_ITS | Encounter Summary ---
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 Gender Identity Female 12/24/2020 10:33 AM CDT Sexual Orientation Straight 12/24/2020 10 :33 AM CDT documented as of this encounter Plan of Treatment Not on file documented as of this encounter Visit Diagnoses Not on filedocumented in this encounter Additional Health Concerns Assessment Noted Time PHQ-9 Depression Total Score: 2 12/08/19 17 7:07 AM CDT documented as of this encounter Care Teams Service Writer Advisor Relationship Specialty Start Date End Date Jeannette Rice MD PCP - General Family Practice 12/06/16 [place] [address] CLAUD[place] CORADO [address] Assigned PCP 12/12/16 09/13/20 Jaylen Gee PA-C 96321 [place] [address] Assigned PCP 09/14/20 10/11/20 [place] [address] [place]UD[place] CORADO 296[address] Assigned PCP 10/12/20 01/17/21 [place] [address] [place] COR[place] [address] Assigned PCP 01/18/21 02/04/24 documented as of this encounter
--- OUTSIDE RECORDS SUMMARY | 2024-06-08 09:02 | XMS_ITS | Referral Summary ---
Author Organization [facility] Address [address] [place] [address] Care Team Providers Care Base Brander Name Role Phone Jeannette Rice MD Primary [...] (01/17/2019): 07/14/10 ASCUS, +high risk HPV 08/04/10 [place], TWYLA 1: repeat in 4 months 12/31/10 Dx pap=neg: Repeat in 6 months 08/27/11 Pap=neg: annual paps per Dr. Rice 10/10/12 Pap= Neg. 1 year screening. 12/06/16 Pap= Normal, +HR HPV, not 16/18. 1 yr co-test 03/13/18 NIL, +HR HPV, not 16/18. Plan colp 04/11/18 [place]- Negative. Plan repeat pap 6 months 01/09/19 [...] AM CDT Legal Sex Female 3:28 AM SEWER PIPE OFFBEARER Gender Identity Female 12/24/2020 10:33 AM CDT Sexual Orientation Straight 12/24/2020 10 :33 AM CDT Last Filed Vital Signs Vital Sign Reading Time Taken Comments Blood Pressure 102/60 12/31/2020 7:15 AM CDT Pulse 60 12/31/2020 7:15 AM CDT Temperature 36.6 ??C (97.8 ??F) 12/31/2020 7:15 AM CD T Respiratory Rate 16 12/31/2020 7:15 AM CDT Oxygen Saturation 100% 09/11/2019 8:43 AM SEWER PIPE OFFBEARER Inhaled Oxygen Concentration - - Weight 66.7 kg (147 lb) 12/31/2020 7:15 AM CDT Height 168.9 cm (5' 6.5) 12/31/2020 7:15 AM CDT Body Mass Index 23.37 12/31/2020 7:15 AM CDT Plan of Treatment Not on file Insurance [facility] [place] [id number] Care Teams Base Brander Relationship Specialty Start Date End Date Jeannette Rice MD PCP - General Family Practice 12/06/16
--- OUTSIDE RECORDS SUMMARY | 2024-06-08 09:02 | XMS_ITS | Encounter Summary ---
Author Organization [place] Address [address] [place] [address]. [place] [address] Care Team Providers Care Aluminum Fabrication Supervisor Name Role Phone Jeannette Rice MD Primary Care Provider Jeannette Rice MD Unavailable [phone] Jeannette Rice MD Unavailable [phone] Jaylen Gee PA-C Unavailable + [phone] Jeannette Rice MD Unavailable [phone] Jeannette Rice MD Unavailable [phone] Reason for Visit * Reason Onset Date Comments Abnormal Uterine Bleeding 10/25/2017 Menses Encounter Details Date Type Department Care Team (Late st Contact Info) Description 10/25/2017 MyC Medical Advice [address], [address] [place] [address] [place] [address] [place] [address] Abnormal Uterine Bleeding (Menses) Social History Tobacco [...] AM CDT Legal Sex Female 3:28 AM 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 See below. Cary Duncan RN -- [facility] Workforce * Telephone Encounter - Jeannette [...] documented as of this encounter Care Teams Aluminum Fabrication Supervisor Relationship Specialty Start Date End Date Jeannette Rice MD PCP - General Family Practice 12/06/16 [place] [address] [address]O [address] PCP - Assigned PCP 12/12/16 10/17/18 [place] [address] [address] [address] Assigned PCP 12/12/16 09/13/20 Jaylen Gee PA-C 64928 [address] [address]101[address] Assigned PCP 09/14/20 10/11/20 [place] [address] [address] 77635 Assigned PCP 10/12/20 01/17/21 [place] [address] [address] [address]51 Assigned PCP 01/18/21 02/04/24 documented as of this encounter
--- OUTSIDE RECORDS SUMMARY | 2024-06-08 09:02 | XMS_ITS | Encounter Summary ---
Author Organization [place] Address [address] [place] [address] Care Team Providers Care Rn Ed Name Role Phone Jeannette Rice MD Primary Care Provider Jeannette Rice MD Unavailable [phone] Jaylen Gee PA-C Unavailable + [phone] Jeannette Rice MD Unavailable [phone] Jeannette Rice MD Unavailable [phone] Reason for Visit * Reason Onset Date Comments Medication Refill 12/20/2018 traZODone (JONATHAN YREL) 50 MG tablet Encounter Details Date Type Department Care Team (Late st Contact Info) Description 12/20/[address], [address] [place] [address] [place] [address] [place] [address] Medication Refill (traZODone (DESYREL) 50 [...] AM CDT 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 [address] [place] [address], [address] [facility] [address] Serotonin Modulators Passed - 12/20/2018 1:26 [...] documented as of this encounter Care Teams Rn Ed Relationship Specialty Start Date End Date Jeannette Rice MD PCP - General Family Practice 12/06/16 [place] [address] [address] 90119 Assigned PCP 12/12/16 09/13/20 Jaylen Gee PA-C 81238 [address] 13141 Assigned PCP 09/14/20 10/11/20 [place] [address] [address] 97148 Assigned PCP 10/12/20 01/17/21 [place] [address] [address] 91938 Assigned PCP 01/18/21 02/04/24 documented as of this encounter
--- OUTSIDE RECORDS SUMMARY | 2024-06-08 09:02 | XMS_ITS | Encounter Summary ---
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 Gender Identity Female 12/24/2020 10:33 AM CDT Sexual Orientation Straight 12/24/2020 10 :33 AM CDT documented as of this encounter Plan of Treatment Not on file documented as of this encounter Visit Diagnoses Not on filedocumented in this encounter Additional Health Concerns Assessment Noted Time PHQ-9 Depression Total Score: 2 12/08/19 17 7:07 AM CDT documented as of this encounter Care Teams Music Professionals Relationship Specialty Start Date End Date Jeannette Rice MD PCP - General Family Practice 12/06/16 [place] [address] [place] [address] PCP - Assigned PCP 12/12/16 10/17/18 [place] [address] [place] [address] Assigned PCP 12/12/16 09/13/20 Jaylen Gee PA-C [address] [place] [address] Assigned PCP 09/14/20 10/11/20 [place] [address] [place] [address] Assigned PCP 10/12/20 01/17/21 [place] [address] [place] [address] Assigned PCP 01/18/21 02/04/24 documented as of this encounter
== END 2024-06-08 09:00 | disposition home or self-care (01) ==
LOC: NFLDREF 09:01
PROVIDERS: Visit Provider Physician Assistant
DX: Z01.419 Encounter for gynecological examination (general) (routine) without abnormal findings (principal); N92.0 Excessive and frequent menstruation with regular cycle; Z13.6 Encounter for screening for cardiovascular disorders
CPT/HCPCS: 80061; 84443

== ENCOUNTER 2024-06-28 07:11 | Outpatient (CLI) | payer BC, SELFPAY ==
--- OUTSIDE RECORDS SUMMARY | 2024-06-28 07:13 | XMS_ITS | Encounter Summary ---
Author Organization [place] Address [address] [place] [address] Care Team Providers Care Purchasing Assistant Name Role Phone Jeannette Rice MD Primary Care Provider Jeannette Rice MD Unavailable [phone] Jaylen Gee PA-C Unavailable + [phone] Jeannette Rice MD Unavailable [phone] Jeannette Rice MD Unavailable [phone] Reason for Visit * Reason Onset Date Comments Medication Refill 12/20/2018 traZODone (JONATHAN YREL) 50 MG tablet Encounter Details Date Type Department Care Team (Late st Contact Info) Description 12/20/[address], [address] [place] [address] [place] [address] [place] [address] Medication Refill (traZODone (DESYREL) 50 [...] AM CDT 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 Gender Identity Female 12/24/2020 10:33 AM CDT [...] CDT Office Visit with Jeannette Rice MD [facility] [address] [place] [address], [address] [facility] [address] Serotonin Modulators Passed - 12/20/2018 [...] documented as of this encounter Care Teams Purchasing Assistant Relationship Specialty Start Date End Date Jeannette Rice MD PCP - General Family Practice 12/06/16 [place] [address] [address] [address] Assigned PCP 12/12/16 09/13/20 Jaylen Gee PA-C 31222 [address] [address] Assigned PCP 09/14/20 10/11/20 [place] [address] [address] [address]2686 Assigned PCP 10/12/20 01/17/21 [place] [address] [address]O 17922 Assigned PCP 01/18/21 02/04/24 documented as of this encounter
--- OUTSIDE RECORDS SUMMARY | 2024-06-28 07:13 | XMS_ITS | Encounter Summary ---
Author Organization [place] Address [address] [place] [address] Care Team Providers Care Laborer Dairy Farm Name Role Phone Jeannette Rice MD Primary Care Provider + Jeannette Rice MD Unavailable + Jeannette Rice MD Unavailable [phone] Jaylen Gee PA-C Unavailable + Jeannette Rice MD Unavailable + Jeannette Rice MD Unavailable [phone] Encounter Details Date Type Department Care Team (Late st Contact Info) Description 05/25/2017 MyC Medical Advice [facility] [address] [address] Kenyetta Prieto APRN A R COLLECTIONS REP [facility] [address] [facility] [address] [place] [address] Social History Tobacco Use Types [...] AM CDT 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 Gender Identity Female 12/24/2020 10:33 AM CDT Sexual Orientation Straight 12/24/2020 10 :33 AM CDT documented as of this encounter Plan of Treatment Not on file documented as of this encounter Visit Diagnoses Not on filedocumented in this encounter Additional Health Concerns Assessment Noted Time PHQ-9 Depression Total Score: 2 12/08/19 17 7:07 AM CDT documented as of this encounter Care Teams Laborer Dairy Farm Relationship Specialty Start Date End Date Jeannette Rice MD PCP - General Family Practice 12/06/16 [place] [address] [address]ADO [id number] PCP - Assigned PCP 12/12/16 10/17/18 [place] [address] [address] 390[address] Assigned PCP 12/12/16 09/13/20 Jaylen Gee PA-C 99053 [address] 00366 Assigned PCP 09/14/20 10/11/20 [place] [address] [address]O 83887 Assigned PCP 10/12/20 01/17/21 [place] [address] [address] CORADO [id number] Assigned PCP 01/18/21 02/04/24 documented as of this encounter
--- OUTSIDE RECORDS SUMMARY | 2024-06-28 07:13 | XMS_ITS | Encounter Summary ---
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 Gender Identity Female 12/24/2020 10:33 AM CDT Sexual Orientation Straight 12/24/2020 10 :33 AM CDT documented as of this encounter Plan of Treatment Not on file documented as of this encounter Visit Diagnoses Not on filedocumented in this encounter Additional Health Concerns Assessment Noted Time PHQ-9 Depression Total Score: 2 12/08/19 17 7:07 AM CDT documented as of this encounter Care Teams Staffing Analyst Relationship Specialty Start Date End Date Jeannette Rice MD PCP - General Family Practice 12/06/16 [place] [address] [place] [address] PCP - Assigned PCP 12/12/16 10/17/18 [place] [address] [place] [address] Assigned PCP 12/12/16 09/13/20 Jaylen Gee PA-C [address] [place] [address] Assigned PCP 09/14/20 10/11/20 [place] [address] [place] [address] Assigned PCP 10/12/20 01/17/21 [place] [address] [place] [address] Assigned PCP 01/18/21 02/04/24 documented as of this encounter
--- OUTSIDE RECORDS SUMMARY | 2024-06-28 07:13 | XMS_ITS | Encounter Summary ---
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 Gender Identity Female 12/24/2020 10:33 AM CDT Sexual Orientation Straight 12/24/2020 10 :33 AM CDT documented as of this encounter Plan of Treatment Not on file documented as of this encounter Visit Diagnoses Not on filedocumented in this encounter Additional Health Concerns Assessment Noted Time PHQ-9 Depression Total Score: 2 12/08/19 17 7:07 AM CDT documented as of this encounter Care Teams Natural Resources Professor Relationship Specialty Start Date End Date Jeannette Rice MD PCP - General Family Practice 12/06/16 [place] [address] [place] [address] PCP - Assigned PCP 12/12/16 10/17/18 [place] [address] [place] [address] Assigned PCP 12/12/16 09/13/20 Jaylen Gee PA-C [address] [place] [address] Assigned PCP 09/14/20 10/11/20 [place] [address] [place] [address] Assigned PCP 10/12/20 01/17/21 [place] [address] [place] [address] Assigned PCP 01/18/21 02/04/24 documented as of this encounter
--- OUTSIDE RECORDS SUMMARY | 2024-06-28 07:13 | XMS_ITS | Encounter Summary ---
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 Gender Identity Female 12/24/2020 10:33 AM CDT Sexual Orientation Straight 12/24/2020 10 :33 AM CDT documented as of this encounter Plan of Treatment Not on file documented as of this encounter Visit Diagnoses Not on filedocumented in this encounter Additional Health Concerns Assessment Noted Time PHQ-9 Depression Total Score: 2 12/08/19 17 7:07 AM CDT documented as of this encounter Care Teams Pit Tanner Relationship Specialty Start Date End Date Jeannette Rice MD PCP - General Family Practice 12/06/16 [place] [address] [address]O [address] Assigned PCP 12/12/16 09/13/20 Jaylen Gee PA-C 06341 [address] [address] Assigned PCP 09/14/20 10/11/20 [place] [address] [address] [address] Assigned PCP 10/12/20 01/17/21 [place] [address] [address] 445[address] Assigned PCP 01/18/21 02/04/24 documented as of this encounter
--- OUTSIDE RECORDS SUMMARY | 2024-06-28 07:13 | XMS_ITS | Clinical Summary ---
Author Organization [place] Address [address] [place] [address] Care Team Providers Care Or Assistant Name Role Phone Jeannette Rice MD [...] (01/17/2019): 07/14/10 ASCUS, +high risk HPV 08/04/10 [place], TWYLA 1: repeat in 4 months 12/31/10 Dx pap=neg: Repeat in 6 months 08/27/11 Pap=neg: annual paps per Dr. Rice 10/10/12 Pap= Neg. 1 year screening. 12/06/16 Pap= Normal, +HR HPV, not 16/18. 1 yr co-test 03/13/18 NIL, +HR HPV, not 16/18. Plan colp 04/11/18 [place]- Negative. 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 Gender Identity Female 12/24/2020 10:33 AM CDT Sexual Orientation Straight 12/24/2020 10 :33 AM CDT Last Filed Vital Signs Vital Sign Reading Time Taken Comments Blood Pressure 102/60 12/31/2020 7:15 AM CDT Pulse 60 12/31/2020 7:15 AM CDT Temperature 36.6 ??C (97.8 ??F) 12/31/2020 7:15 AM CD T Respiratory Rate 16 12/31/2020 7:15 AM CDT Oxygen Saturation 100% 09/11/2019 8:43 AM SPEECH AND DRAMA TEACHER Inhaled Oxygen Concentration - - Weight 66.7 kg (147 lb) 12/31/2020 7:15 AM CDT Height 168.9 cm (5' 6.5) 12/31/2020 7:15 AM CDT Body Mass Index 23.37 12/31/2020 7:15 AM CDT Plan of Treatment Not on file [place] [id number] Care Teams Or Assistant Relationship Specialty Start Date End Date Jeannette Rice MD PCP - General Family Practice 12/06/16
--- OUTSIDE RECORDS SUMMARY | 2024-06-28 07:13 | XMS_ITS | Referral Summary ---
Author Organization [place] Address [address] [place] [address] Care Team Providers Care Supervisor Sanding Name Role Phone Jeannette Rice MD Primary [...] (01/17/2019): 07/14/10 ASCUS, +high risk HPV 08/04/10 [place], TWYLA 1: repeat in 4 months 12/31/10 Dx pap=neg: Repeat in 6 months 08/27/11 Pap=neg: annual paps per Dr. Rice 10/10/12 Pap= Neg. 1 year screening. 12/06/16 Pap= Normal, +HR HPV, not 16/18. 1 yr co-test 03/13/18 NIL, +HR HPV, not 16/18. Plan colp 04/11/18 [place]- Negative. 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 Gender Identity Female 12/24/2020 10:33 AM CDT Sexual Orientation Straight 12/24/2020 10 :33 AM CDT Last Filed Vital Signs Vital Sign Reading Time Taken Comments Blood Pressure 102/60 12/31/2020 7:15 AM CDT Pulse 60 12/31/2020 7:15 AM CDT Temperature 36.6 ??C (97.8 ??F) 12/31/2020 7:15 AM CD T Respiratory Rate 16 12/31/2020 7:15 AM CDT Oxygen Saturation 100% 09/11/2019 8:43 AM FIRE DEPARTMENT MARINE ENGINEER Inhaled Oxygen Concentration - - Weight 66.7 kg (147 lb) 12/31/2020 7:15 AM CDT Height 168.9 cm (5' 6.5) 12/31/2020 7:15 AM CDT Body Mass Index 23.37 12/31/2020 7:15 AM CDT Plan of Treatment Not on file Insurance [facility] [place] [address] Care Teams Supervisor Sanding Relationship Specialty Start Date End Date Jeannette Rice MD PCP - General Family Practice 12/06/16
--- OUTSIDE RECORDS SUMMARY | 2024-06-28 07:13 | XMS_ITS | Encounter Summary ---
Author Organization [facility] Address [address] [place] [address]. [place] [address] Care Team Providers Care Weapons And Tactics Instructor Name Role Phone Jeannette Rice MD Primary Care Provider Jeannette Rice MD Unavailable [phone] Jeannette Rice MD Unavailable [phone] Jaylen Gee PA-C Unavailable + [phone] Jeannette Rice MD Unavailable [phone] Jeannette Rice MD Unavailable [phone] Reason for Visit * Reason Onset Date Comments Abnormal Uterine Bleeding 10/25/2017 Menses Encounter Details Date Type Department Care Team (Late st Contact Info) Description 10/25/2017 MyC Medical Advice [address], [address] [place] [address] [place] [address] [place] [address] Abnormal Uterine Bleeding (Menses) Social History Tobacco [...] AM CDT 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 See below. Cary Duncan RN -- [facility] Workforce * Telephone Encounter - Jeannette [...] documented as of this encounter Care Teams Weapons And Tactics Instructor Relationship Specialty Start Date End Date Jeannette Rice MD PCP - General Family Practice 12/06/16 [place] [address] [address]O [address] PCP - Assigned PCP 12/12/16 10/17/18 [place] [address] [address]ADO 18184 Assigned PCP 12/12/16 09/13/20 Jaylen Gee PA-C 07780 [address] [address] Assigned PCP 09/14/20 10/11/20 [place] [address] [address] CORADO 67767 Assigned PCP 10/12/20 01/17/21 [place] [address] [address]O 55[address] Assigned PCP 01/18/21 02/04/24 documented as of this encounter
--- OUTSIDE RECORDS SUMMARY | 2024-06-28 07:14 | XMS_ITS | Encounter Summary ---
Author Organization [place] Address [address] [place] [address] Care Team Providers Care Cell Tester Name Role Phone Jeannette Rice MD Primary Care Provider + Jeannette Rice MD Unavailable + Jeannette Rice MD Unavailable + Jaylen Gee PA-C Unavailable + Jeannette Rice MD Unavailable + Jeannette Rice MD Unavailable + Encounter Details Date Type Department Care Team (Late st Contact Info) Description 10/09/2012 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 Gender Identity Female 12/24/2020 10:33 AM CDT Sexual Orientation Straight 12/24/2020 10 :33 AM CDT documented as of this encounter Plan of Treatment Not on file documented as of this encounter Visit Diagnoses Not on filedocumented in this encounter Care Teams Cell Tester Relationship Specialty Start Date End Date Krystal, Jeannette She, MD PCP - General Family Practice 12/06/16 [place] [address] [place] [address] PCP - Assigned PCP 12/12/16 10/17/18 [place] [address] [place] [address] Assigned PCP 12/12/16 09/13/20 Jaylen Gee PA-C [address] [place] [address] Assigned PCP 09/14/20 10/11/20 [place] [address] [place] [address] Assigned PCP 10/12/20 01/17/21 [place] [address] [place] [address] Assigned PCP 01/18/21 02/04/24 documented as of this encounter
--- OUTSIDE RECORDS SUMMARY | 2024-06-28 07:14 | XMS_ITS | Encounter Summary ---
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 Gender Identity Female 12/24/2020 10:33 AM CDT Sexual Orientation Straight 12/24/2020 10 :33 AM CDT documented as of this encounter Plan of Treatment Not on file documented as of this encounter Visit Diagnoses Diagnosis CINTIA [place] PROG NOTE- Primary documented in this encounter Care Teams Ward Secretary Relationship Specialty Start Date End Date Jeannette Rice MD PCP - General Family Practice 12/06/16 [place] [address] [place] [address] PCP - Assigned PCP 12/12/16 10/17/18 [place] [address] [place] [address] Assigned PCP 12/12/16 09/13/20 Jaylen Gee PA-C [address] [place] [address] Assigned PCP 09/14/20 10/11/20 [place] [address] [place] [address] Assigned PCP 10/12/20 01/17/21 [place] [address] [place] [address] Assigned PCP 01/18/21 02/04/24 documented as of this encounter
--- OUTSIDE RECORDS SUMMARY | 2024-06-28 07:14 | XMS_ITS | Encounter Summary ---
Author Organization [facility] Address [address] [place] [id number] Care Team Providers Care Health Information Management Director Name Role Phone Jeannette Rice MD Primary Care Provider Jeannette Rice MD Unavailable [phone] Jeannette Rice MD Unavailable [phone] Jaylen Gee PA-C Unavailable [phone] Jeannette Rice MD Unavailable [phone] Jeannette Rice MD Unavailable [phone] Encounter Details Date Type Department Care Team (Late st Contact Info) Description 03/30/[address] [address] Tarsha Vinson MD NO INFO FOUND XXX, CLAUDIA [id number] ER ENC REPT (Primary Dx) Social History [...] AM CDT 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 HISTORY OF [...] to years. She was seen initially at [facility] and wa s sent to the Emergency Department for further evaluation. There has been no nausea or vomiting. PAST MEDICAL HISTORY: Bladder surgery 18 years ago. 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 MEDICATIONS: None. ALLERGIES: None. SOCIAL HISTORY: Student at [employer]. Keysha ing in [place]. REVIEW OF SYSTEMS: OUTREACH MANAGER: Negative. : Negative. GI: The patient denies [...] Push fluids. 4. Follow-up with PMD at [facility] [place] VALVERDE MD [place]: [facility] Document: [id number] [place], [place] Name: DEIDRA HARGROVE EMERGENCY ROOM ENCOUNTER Page 2 of 2 LCN: ER DSC: 03/30 [place], [place] Name: BEENA DEIDRA Mohit MR#: : Admit Date: 00 --30-57 1980 03/30/2003 Doctor: LUIS VALVERDE MD EMERGENCY ROOM ENCOUNTER Page 1 of 2 Electronically filed by Andreas Iglesias 04/03/2003 5:05 PM documented in this encounter Plan of Treatment Not on file documented as of this encounter Visit Diagnoses Diagnosis ER ENC REPT- Primary documented in this encounter Care Teams Health Information Management Director Relationship Specialty Start Date End Date Jeannette Rice MD PCP - General Family Practice 12/06/16 [place] [id number] CLAUDIA CORADO [address] PCP - Assigned PCP 12/12/16 10/17/18 [place] [address] CLAUDIA CORADO 401[address] Assigned PCP 12/12/16 09/13/20 Jaylen Gee PA-C [phone] CLAUDIA CORADO [address] Assigned PCP 09/14/20 10/11/20 [place] [address] CLAUDIA CORADO [address] Assigned PCP 10/12/20 01/17/21 [place] [address] CLAUDIA CORADO [id number] Assigned PCP 01/18/21 02/04/24 documented as of this encounter
--- OUTSIDE RECORDS SUMMARY | 2024-06-28 07:14 | XMS_ITS | Continuity of Care Document ---
Author Organization [facility] Address [address] [place] [address] [address], [place] [address] Insurance Providers Payer Plan Claims Address Claims Phone Policy Number Group Number Relation Employer Guarantor Name Guarantor Guarantor Address Guarantor Phone BCBS BCBS [address] [address], [place] [address] tel:[phone] Self Deidra Roberts [address] [place] [address], [place] [address] Blue Cross [id number] Blue Cross [id number] Self Deidra Roberts [address] [place] [address] [place] [address] Problems Condition ICD9 code ICD10 code SNOMED code Start Date End Date S tatus Encounter for screening, unspecified Z13.9 Encounter for screening, unspecified Z13.9 Excessive and frequent menstruation with regular cycle N92.0 Excessive and frequent menstruation with regular cycle N92.0 Results No Results Allergies, adverse reactions, alerts No known allergies and adverse reactions Medications No administered medications reported Vital Signs No vital signs reported Social History No smoking Hx information available
--- NOTE | 2024-06-28 07:15 | CRLHL7_ITS ---
For Patients: As a result of the Century Cures Act, medical imaging exams and procedure reports are released immediately into your electronic medical record. You may view this report before your referring provider. If you have questions, please contact your health care provider. INDICATION: Excessive and frequent menstruation with regular cycle TECHNIQUE: Transabdominal and transvaginal scanning was performed. Transvaginal scanning was performed to optimally evaluate the endometrium and adnexa. Ovarian blood flow was evaluated with color-flow and pulsed Doppler. COMPARISON: Pelvic ultrasound of 06/20/2023 FINDINGS: The uterus is normal in size and shape. The uterus measures 8.5 x 4.1 x 5.7 cm. No myometrial mass is evident. The endometrial stripe is normal in thickness at 9 mm. The ovaries are normal in size and contain a number of follicles. The right ovary measures 3.1 x 2.0 x 1.5 cm and left 3.0 x 2.5 x 2.0 cm. Ovarian blood flow is demonstrated with color-flow and pulsed Doppler. No adnexal mass is evident. No free fluid is demonstrated. IMPRESSION: Negative pelvic ultrasound. Dictated by Isauro Fletcher MD @ 06/29/2024 6:56:16 AM (Electronically Signed)
== END 2024-06-28 07:12 | disposition home or self-care (01) ==
PROVIDERS: Visit Provider Physician Assistant
DX: N92.0 Excessive and frequent menstruation with regular cycle (principal)
CPT/HCPCS: 76830; 76856

== ENCOUNTER 2024-06-28 08:41 | Outpatient (CLI) | payer BC, SELFPAY ==
[2024-06-30 07:38] LABS: HPV Source Cervix; HPV, High Risk by TMA Not Detected
== END 2024-06-28 08:42 | disposition home or self-care (01) ==
PROVIDERS: Visit Provider Physician Assistant
DX: Z12.4 Encounter for screening for malignant neoplasm of cervix (principal); N92.0 Excessive and frequent menstruation with regular cycle
CPT/HCPCS: 87624; 87625; 88141; 88142

== ENCOUNTER 2024-07-26 09:05 | Day surgery (SDC) | payer BC, SELFPAY ==
[2024-07-26] VITALS (7 sets, daily range): BP systolic 105–118; BP diastolic 7–93; PULSE 50–65; RESP 16–18; TEMP 36.6; O2SAT 99–100; BMI 20.8
[2024-07-26] MEDS: SODIUM CHLORIDE 0.9 % (FLUSH) 10 ML SYRINGE IVF (09:20)
[2024-07-26 09:23] LABS: Ur HCG Qualitative* Negative (Negative)
--- NOTE | 2024-07-26 10:29 | W.PM.H&PU ---
History & Physical Update History & Physical Update H&P Reviewed and patient assessed: The following changes are noted below H&P Updates: She has noticed postcoital bleeding for the past couple of months. Will also collect vaginal swabs to r/o vaginitis. Patient would also like me to look at a right butt cheek rash that appeared after her last clinic visit. It was similar to impetigo episode she had last year and she has been applying topical antibiotic with some improvement.
[2024-07-26] MEDS: LIDOCAINE 1 % PF 30 ML INJECTION (10:51)
[2024-07-26 11:09] LABS: Clue Cells No Clue Cells Seen (None Seen); Trichomonas No Trichomonas Seen (None Seen); Yeast No Yeast Seen (None Seen)
[2024-07-26] MEDS: SILVER NITRATE APPLICATOR 1 EACH STICK..EA. TOPICAL (11:16)
--- NOTE | 2024-07-26 11:35 | W.ANESCHARGE ---
Anesthesia Charges Start Date/Time Anesthesia Start Date: 07/26/24 Anesthesia Start Time: 10:24 Stop Date/Time Anesthesia Stop Date: 07/26/24 Anesthesia Stop Time: 11:34
--- NOTE | 2024-07-26 11:37 | W.ANESCHARGE ---
Anesthesia Charges Start Date/Time Anesthesia Start Date: 07/26/24 Anesthesia Start Time: 10:24 Stop Date/Time Anesthesia Stop Date: 07/26/24 Anesthesia Stop Time: 11:34
--- NOTE | 2024-07-26 11:38 | W.PM.GYNPROC ---
Procedure Note Date of procedure: 07/26/24 Will [facility] bill your pro fee for this procedure?: Yes Pre-op diagnosis: Abnormal uterine bleeding, postcoital bleeding Post-op diagnosis: Abnormal uterine bleeding, postcoital bleeding, suspected genital herpes Procedure: Hysteroscopy, dilation and curettage, endometrial ablation Anesthesia: MAC Complications: None Surgeon: Kuldeep Wilkes MD Estimated blood loss (mL): 20 IV fluids (mL): 800 Urine Output (mL): 200 Pathology: specimen obtained, sent to pathology (Endometrial curettings) Condition: stable Disposition: same day Findings: External genitalia: right butt cheek with 3 small lesions that look like vesicles and 1 looks to be slightly ulcerated. Vesicles seem to be filled with clear fluid, base looks slightly erythematous. Herpes culture collected. Speculum exam: cervix w/o gross lesions or abnormal discharge. Uterus retroverted, uterine sound: 9cm. Intrauterine cavity: bilateral cornual openings seen, thick and fluffy tissue on all intrauterine eldridge, small polypoid structure on the posterior right close to the right cornual opening. Cervical length of 4cm. No discernible polypoid structures noted. Procedure Description: Patient was taken to the OR were MAC anesthesia was administered without difficulty. She was placed in the dorsal lithotomy position with Farrukh type stirrups. An exam under anesthesia as described above. Viral culture was collected of external genitalia lesions described above. Also, utilizing a sterile speculum a wet prep and Gonorrhea and Chlamydia swab was collected prior to sterile prep. Patient was then prepared and draped in the normal sterile fashion. A bivalved speculum was inserted in the posterior aspect of the vagina. 0.5% Marcaine was injected at 2 and 11 o'clock a total of about 5mL utilized. A single-tooth tenaculum was used to grasp the anterior lip of the cervix. The cervical os was sequentially dilated to accommodate the 5 mm TrueClear hysteroscope using Hegar dilators. The uterus was carefully sounded to 9 cm. A 5 mm 30 degree TrueClear hysteroscope was introduced under direct visualization, and the uterus was distended with normal saline. Findings as above. Soft tissue incisor blade from TrueClear hysteroscope system was introduced under direct visualization and endometrial curettings performed. Hysteroscope removed under direct visualization. Cervical length 4 cm. Rosemary opened and array length was set up to 5 cm, the device was inserted up until the fundus, the device was deployed and cervical sealing balloon was inflated, gas bubbles noted to come out from the cervix, the cervical sealing balloon was inflated twice but gas bubbles still noted. A tenaculum was placed on the posterior cervix and this allowed adequate cervical seal to proceed. Uterine integrity tests passed and endometrial ablation was performed successfully. The cervical sealing balloon was deflated, device was removed from uterus and hysteroscopy was performed with findings of an adequate burning of intrauterine cavity tissues. Tenaculum were removed from the cervix small bleeding lacerations from tenaculum manipulation noted at 11 and 5 o clock. These were managed with Vicryl 3-0 in figure of 8 manner, also silver nitrate applied and hemostasis was secured. Patient tolerated the procedure well. Instrument and sponge counts were correct x2. The patient was awakened from MAC anesthesia and taken to the recovery room in a stable condition. The patient will go home after recovering from anesthesia and meeting all the criteria for discharge. She was given instruction regarding follow-up visit in 2 weeks at [facility] and instructions for pain medication. Fluid deficit: 450mL After procedure I was able to talk to patient at recovery area and discussed findings suspicious for genital herpes, discussed collection of swabs and that we would notify her with results. I recommend to start anti viral therapy and this was ordered to her pharmacy. 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 Will follow up on results.
[2024-07-26 12:38] LABS: Chlamydia DNA Amplified* NOT DETECTED (No Detected); GC DNA Amplified* NOT DETECTED (No Detected)
== END 2024-07-26 13:06 | disposition home or self-care (01) ==
LOC: OR 09:07
PROVIDERS: Visit Provider Obstetrics & Gynecology
PROC: 0UF98ZZ Fragmentation in Uterus, Via Natural or Artificial Opening Endoscopic (ICD-10-PCS; CPT 58563; principal; 2024-07-26 10:30)
DX: N93.0 Postcoital and contact bleeding (principal); N92.0 Excessive and frequent menstruation with regular cycle; A60.09 Herpesviral infection of other urogenital tract
CPT/HCPCS: 58563; 56605; 00952; 81025; 87210; 87252; 87491; 87591; 88305; A9270; C1782; J1885; J2003; J2405; J2704; J3010

== ENCOUNTER 2024-09-07 09:09 | Outpatient (CLI) | payer BC, SELFPAY ==
--- NOTE | 2024-09-07 09:15 | CRLHL7_ITS ---
For Patients: As a result of the Century Cures Act, medical imaging exams and procedure reports are released immediately into your electronic medical record. You may view this report before your referring provider. If you have questions, please contact your health care provider. BILATERAL SCREENING MAMMOGRAM WITH COMPUTER-AIDED DETECTION AND TOMOSYNTHESIS TECHNIQUE: CC and MLO views were obtained. These mammographic images have been obtained using full-field digital technique. These mammographic images were interpreted with the benefit of computer-aided detection. Breast Tomosynthesis was used in this interpretation. COMPARISON FILM: 09/05/23. FINDINGS: The breasts are extremely dense, which lowers the sensitivity of mammography. IMPRESSION: There is no radiographic evidence for malignancy. ASSESSMENT: BI-RADS Category 1: Negative RECOMMENDATION: Routine screening mammogram in 1 year. A lay language report of this examination will be provided to the patient. Escobar Benoit M.D. Diagnostic Radiologist [email or web address] SP/Dictated by: Escobar Benoit MD @ 09/10/2024 10:37:00 AM (Electronically Signed)
== END 2024-09-07 09:10 | disposition home or self-care (01) ==
LOC: MAMMO 09:09
PROVIDERS: Visit Provider Registered Nurse
DX: Z12.31 Encounter for screening mammogram for malignant neoplasm of breast (principal); R92.343 Mammographic extreme density, bilateral breasts
CPT/HCPCS: 77063; 77067

== ENCOUNTER 2024-11-27 15:35 | Outpatient (CLI) | payer BC, SELFPAY ==
[2024-11-27 18:36] LABS: Bacterial Vaginosis* Negative (Negative); Candida glab/krus NOT DETECTED (No Detected); Candida species NOT DETECTED (No Detected); Trichomonas vaginalis NOT DETECTED (No Detected)
[2024-11-27 19:04] LABS: Chlamydia DNA Amplified* NOT DETECTED (No Detected); GC DNA Amplified* NOT DETECTED (No Detected)
== END 2024-11-27 15:36 | disposition home or self-care (01) ==
PROVIDERS: Visit Provider Physician Assistant
DX: Z11.3 Encounter for screening for infections with a predominantly sexual mode of transmission (principal); N93.0 Postcoital and contact bleeding; N89.8 Other specified noninflammatory disorders of vagina
CPT/HCPCS: 81513; 87481; 87491; 87591; 87661